=== PATIENT | male | born 1965 | race Caucasian/White ===

== ENCOUNTER → 2023-10-29 10:22 | Outpatient (REF) | payer OTHER, SELFPAY | LOC: HWRAD 10:22 | PROVIDERS: ATTENDING PHYSICIAN Student in an Organized Health Care Education/Training Program | DX: R74.8 Abnormal levels of other serum enzymes (principal); Z87.891 Personal history of nicotine dependence | CPT/HCPCS: 71271; 76700 ==

== ENCOUNTER 2023-12-12 15:51 | Emergency (ER) | payer OTHER, SELFPAY ==
[2023-12-12 15:58] VITALS: BP 139/88
--- NOTE | 2023-12-12 18:54 | ED.GENMED ---
History of Present Illness
General
Chief Complaint: Musculo-Skeletal Complaint
Source: patient
Exam Limitations: none
Time Seen by Provider: 12/12/23 18:41
Nursing documentation reviewed up to this point in time: agreed with
History of Present Illness
History of Present Illness:
Patient presents to ED secondary to persistent left big toe pain with swelling over the past 4 days, after he fell off his bed and stubbed his toe. Denies any other injuries. Denies loss of sensation. Patient does not take any blood thinning
medications.
Past History
Past History
ED Past Medical History: GERD
ED Past Surgical History: Other (Hernia repair)
Social History
Tobacco: Smoker
Alcohol: Occasional
Drug: None
Personal:
Living: with family
Employment: Employed
Family History
Family History: Other (Noncontributory)
Review of Systems
Review of Systems
Allergies reviewed?: Yes
All Other Systems: ROS reviewed and negative except as documented in HPI and ROS
Constitutional: Reports no symptoms
Musculoskeletal: Reports other (Toe pain with swelling)
Skin: Reports other (Bruising)
Neurological: Reports no symptoms
Phy Exam
Physical Exam
Physical Exam:
Physical Exam
General: mild painful distress, not acutely ill. afebrile
Head: nc/at. eomi
Neck: supple. normal range of motion.
Neuro: alert and oriented. no focal neurological deficits
Skin: no rash
Psychiatric: well kept. interactive and cooperative
Extremities: left 1st proximal phalanx - ecchymosis/swelling/tenderness to palpation
Course
Orders/Labs/Results
Orders:
Orders
12/12/23 16:01
CR Foot - Left Min 3 Views Urgent
Comment:
Reason For Exam: toe injury
12/12/23 18:53
Ibuprofen [Motrin] 400 mg PO NOW STA
Oxycodone/Acetaminophen [Percocet 5/325] 1 tablet PO NOW STA
Vital Signs
Initial and Last Documented VS:
Initial Vital Signs
Temp Pulse Resp BP Pulse Ox
98.2 F 92 18 139/88 98
12/12/23 15:58 12/12/23 15:58 12/12/23 15:58 12/12/23 15:58 12/12/23 15:58
Last Documented Vital Signs
Temp Pulse Resp BP Pulse Ox
98.2 F 92 18 139/88 98
12/12/23 15:58 12/12/23 15:58 12/12/23 15:58 12/12/23 15:58 12/12/23 15:58
MDM/Problems Addressed
MDM/Problems Addressed:
Toe x-ray report reviewed and discussed with patient.
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
*Critical Care Note
Total Time (30-74mins, 75-104mins- exclusive of procedures): Not Applicable
ED Attending Note
-
Portions of this chart may have been created with voice recognition software.� Occasional wrong word or��sound alike� substitutions may have occurred due to the inherent limitations of voice recognition software.
Discharge Plan
Departure
Patient Disposition: Home (Routine Discharge)
Date of Disposition: 12/12/23
Time of Disposition: 18:54
Patient with high blood pressure during this ER visit?: Yes
Condition: Good
Discharge Problem:
Fracture of toe
Instructions: Toe Fracture ED
Prescriptions:
New
oxycodone-acetaminophen [Percocet] 5-325 mg Tablet
1 tab PO Q6HPRN PRN (Reason: pain) Qty: 12 0RF
No Action
esomeprazole magnesium [Nexium] 40 MG capsule,delayed release(DR/EC)
40 mg PO DAILY
levofloxacin 500 MG tablet
500 mg PO DAILY Qty: 5 0RF
metronidazole 500 MG tablet
500 mg PO Q8 Qty: 15 0RF
ibuprofen 600 MG tablet
600 mg PO TID PRN (Reason: pain) Qty: 30 0RF
oxycodone-acetaminophen 5 MG/325 MG tablet
1 tab PO Q4HPRN PRN (Reason: severe pain) Qty: 10 0RF
prednisone 20 MG tablet
20 mg PO DAILY 5 Days Qty: 5 0RF
Referrals:
Ezekiel Giraldo, DO [Family Provider] -
Activity Restrictions/Additional Instructions:
As discussed, please follow-up with your foot doctor for reevaluation as an outpatient. In ED, x-ray did reveal great toe fracture. Please continue to elevate the affected foot, utilize orthopedic boot, as well as ice application. Your
prescription has been sent electronically to [facility] in [place].
Interventions
Interventions:
*Risk Screen - Suicide Last Done: 12/12/23 18:29
*General Assessment Last Done: 12/12/23 15:58
*Neglect/Abuse Screening Last Done: 12/12/23 18:29
ED- Fall Risk Assessment Last Done: 12/12/23 18:29
*ED COVID-19 Vaccine History Last Done: 12/12/23 18:29
*Nursing Disposition Last Done: 12/12/23 19:19
ED-Musculoskeletal Assessment Last Done: 12/12/23 17:30
Discharge Date and Time
Discharge Date/Time: 12/12/23 19:21
Print Language: GABONESE
[2023-12-12] MEDS: PERCOCET 5/325 1 TABLET PO (19:11)
[2023-12-12] MEDS: MOTRIN 400 MG PO (19:12)
== END 2023-12-12 19:21 | disposition home or self-care (01) ==
LOC: EMR 15:51
PROVIDERS: EMERGENCY PHYSICIAN Emergency Medicine; FAMILY PHYSICIAN Student in an Organized Health Care Education/Training Program
DX: S92.402A Displaced unspecified fracture of left great toe, initial encounter for closed fracture (principal); S90.112A Contusion of left great toe without damage to nail, initial encounter; M54.2 Cervicalgia; W06.XXXA Fall from bed, initial encounter; K21.9 Gastro-esophageal reflux disease without esophagitis; F17.200 Nicotine dependence, unspecified, uncomplicated; Z91.048 Other nonmedicinal substance allergy status
CPT/HCPCS: 99283; 29515; 73630

== ENCOUNTER 2023-12-14 21:59 | Emergency (ER) | payer OTHER, SELFPAY ==
[2023-12-14 22:00] VITALS: BP 165/99
[2023-12-14 23:58] VITALS: BMI 28.0
[2023-12-15 00:05] VITALS: BP 164/90
--- NOTE | 2023-12-15 00:30 | ED.GENMED ---
History of Present Illness
General
Chief Complaint: Musculo-Skeletal Complaint
Source: patient and spouse
Time Seen by Provider: 12/15/23 00:12
History of Present Illness
History of Present Illness:
4-year-old male who states that he accidentally fell out of bed Sunday evening/early Sunday a.m., suffering a fracture to his left great toe. He needed to attend a after this event, was wearing dress shoes and on his feet for a long time.
When he presented to the ER on Sunday he was complaining of pain at the great toe with swelling. He had an x-ray here that confirmed a distal tuft fracture, was advised to follow-up with Ortho, given pain medication and a boot. Patient is
trying to keep foot elevated, etc. He presents today because he is concerned about the increase in size of the blood-filled blister noted. No other new symptoms.
Past History
Past History
ED Past Medical History: GERD
ED Past Surgical History: Other (Hernia repair)
Social History
Tobacco: Smoker
Alcohol: Occasional
Drug: None
Personal:
Living: with family
Employment: Employed
Family History
Family History: Other (Noncontributory)
Phy Exam
Physical Exam
Physical Exam:
GENERAL: Alert , in no apparent distress
EYE: pupils equal and reactive
NECK: Supple, no significant adenopathy.
ENT: o/p clr, mmm.
CARDIAC: Regular rate and rhythm .
LUNGS: Clear breath sounds bilaterally, no acute respiratory distress, no wheezes/rales/rhonchi
ABDOMEN: Soft, without focal tenderness, no r/g, no cvat
NEUROLOGICAL: Alert and oriented, no focal neuro deficits
SKIN: Warm and dry, skin intact except for healing superficial abrasion R cortez. There is a large blood filled blister L great toe, mid portion to level of prox nail fold and less so tip of toe, no nail involvement, no drainage.
MUSCULOSKELETAL: No edema, well perfused.
PSYCH: Normal and appropriate interaction.
Course
Vital Signs
Initial and Last Documented VS:
Initial Vital Signs
Temp Pulse Resp BP Pulse Ox
98.3 F 90 18 165/99 98
12/14/23 22:00 12/14/23 22:00 12/14/23 22:00 12/14/23 22:00 12/14/23 22:00
Last Documented Vital Signs
Temp Pulse Resp BP Pulse Ox
98.3 F 76 17 164/90 99
12/14/23 22:00 12/15/23 00:05 12/15/23 00:05 12/15/23 00:05 12/15/23 00:05
*Critical Care Note
Total Time (30-74mins, 75-104mins- exclusive of procedures): Not Applicable
Update Note
Update Note:
Patient presents to the Emergency Department with toe pain
Number and Complexity of Problems Addressed at the Encounter
� Chronic conditions affecting care:
� Acute Exacerbation and/or Progression of Chronic Illness:
� Differential Diagnosis includes: But not limited to pain related to known fracture, increase in size of blister, new injury, etc. etc.
Amount and/or Complexity of Data to be Reviewed and Analyzed
� I performed an independent evaluation of and my interpretation is:
EKG:
CT:
Xrays:
Laboratory Studies:
Other:
� Review of other/old records reveals:
� Clinical information was obtained by an independent historian:
� Prescriptions/Medications Considered but not given:
� Further testing considered but not performed:
Risk of Complications and/or Morbidity or Mortality of Patient Management
� Social determinants of health affecting care:
� Discussion with other providers (PCP, Hospitalists, Consultants, etc):
� Escalation of care including admission/observation vs risk of discharge considered: 12:33 AM normal cap refill, neurovascularly intact. Tenderness to palpation noted at the distal left great toe with associated blood-filled
blister. Discussed with patient my reluctance to open this blister given the risk of introducing infection. Recommend close f/u, continued precautions, area was covered.
ED Attending Note
-
Portions of this chart may have been created with voice recognition software.� Occasional wrong word or��sound alike� substitutions may have occurred due to the inherent limitations of voice recognition software.
Discharge Plan
Departure
Patient Disposition: Home (Routine Discharge)
Date of Disposition: 12/15/23
Time of Disposition: 00:34
Patient with high blood pressure during this ER visit?: Yes
Condition: Good
Discharge Problem:
Fracture of toe, Blood blister
Instructions: Toe Fracture ED, BLOOD PRESSURE
Prescriptions:
No Action
esomeprazole magnesium [Nexium] 40 MG capsule,delayed release(DR/EC)
40 mg PO DAILY
levofloxacin 500 MG tablet
500 mg PO DAILY Qty: 5 0RF
metronidazole 500 MG tablet
500 mg PO Q8 Qty: 15 0RF
ibuprofen 600 MG tablet
600 mg PO TID PRN (Reason: pain) Qty: 30 0RF
oxycodone-acetaminophen 5 MG/325 MG tablet
1 tab PO Q4HPRN PRN (Reason: severe pain) Qty: 10 0RF
prednisone 20 MG tablet
20 mg PO DAILY 5 Days Qty: 5 0RF
oxycodone-acetaminophen [Percocet] 5-325 mg Tablet
1 tab PO Q6HPRN PRN (Reason: pain) Qty: 12 0RF
Referrals:
Ezekiel Giraldo DO [Family Provider] -
Activity Restrictions/Additional Instructions:
PLEASE FOLLOW UP WITH THE PROGRAMMER ANALYST HEALTH IT DIRECTED. CONTINUE TO MONITOR THE AREA,KEEP ELEVATED, ETC. IF YOU DEVELOP INCREASING/NEW PAIN, FEVER, REDNESS, WARMTH, DRAINAGE OR OTHER WORRISOME SIGNS, GO TO THE ER IMMEDIATELY!
Interventions
Interventions:
*Risk Screen - Suicide Last Done: 12/15/23 00:50
*General Assessment Last Done: 12/14/23 22:00
*Neglect/Abuse Screening Last Done: 12/15/23 00:50
ED- Fall Risk Assessment Last Done: 12/14/23 23:59
*ED COVID-19 Vaccine History Last Done: 12/14/23 23:59
*Nursing Disposition Last Done: 12/15/23 00:50
ED-Musculoskeletal Assessment Last Done: 12/14/23 23:59
Discharge Date and Time
Discharge Date/Time: 12/15/23 00:50
Print Language: FIJIAN
== END 2023-12-15 00:50 | disposition home or self-care (01) ==
LOC: EMR 21:59
PROVIDERS: EMERGENCY PHYSICIAN Emergency Medicine; FAMILY PHYSICIAN Student in an Organized Health Care Education/Training Program
DX: S92.402A Displaced unspecified fracture of left great toe, initial encounter for closed fracture (principal); S90.422A Blister (nonthermal), left great toe, initial encounter; W06.XXXA Fall from bed, initial encounter; K21.9 Gastro-esophageal reflux disease without esophagitis; F17.200 Nicotine dependence, unspecified, uncomplicated
CPT/HCPCS: 99282

== ENCOUNTER → 2024-03-06 17:23 | Outpatient (REF) | payer OTHER, SELFPAY | LOC: MRI 17:23 | PROVIDERS: ATTENDING PHYSICIAN Internal Medicine Gastroenterology; FAMILY PHYSICIAN Student in an Organized Health Care Education/Training Program | DX: R17 Unspecified jaundice (principal) | CPT/HCPCS: 74183; A9575 ==

== ENCOUNTER 2024-04-02 06:20 | Day surgery (SDC) | payer OTHER, SELFPAY | END 2024-04-02 14:33 | disposition home or self-care (01) | LOC: GI 06:20 | PROVIDERS: ATTENDING PHYSICIAN Internal Medicine Gastroenterology | DX: Z12.11 Encounter for screening for malignant neoplasm of colon (principal); D12.3 Benign neoplasm of transverse colon; D12.5 Benign neoplasm of sigmoid colon; K55.20 Angiodysplasia of colon without hemorrhage; K22.81 Esophageal polyp; K22.2 Esophageal obstruction; K22.89 Other specified disease of esophagus; I85.00 Esophageal varices without bleeding; K76.6 Portal hypertension; K31.89 Other diseases of stomach and duodenum; R13.10 Dysphagia, unspecified; Z86.0100 Personal history of colon polyps, unspecified | CPT/HCPCS: 45385; 45380; 43239; 88305 ==

== ENCOUNTER → 2024-10-23 11:12 | Outpatient (REF) | payer OTHER, SELFPAY | LOC: HWRAD 11:12 | PROVIDERS: ATTENDING PHYSICIAN Nurse Practitioner; FAMILY PHYSICIAN Student in an Organized Health Care Education/Training Program | DX: K74.60 Unspecified cirrhosis of liver (principal) | CPT/HCPCS: 76700 ==